=== PATIENT | female | born 1965 | race Caucasian/White ===

== ENCOUNTER 2020-04-30 10:34 | Emergency (ER) | payer BC ==
--- NOTE | 2020-04-30 11:36 | EDM.PDOC ---
ED HPI GENERAL MEDICAL PROBLEM - General Chief Complaint: Respiratory Problem Stated Complaint: HEADACHE, BODY ACHES, COUGH Time Seen by Provider: 04/30/20 11:30 Source of Information: Reports: Patient, RN, RN Notes Reviewed History Limitations: Reports: No Limitations - History of Present Illness INITIAL COMMENTS - FREE TEXT/NARRATIVE: Patient presents to the ED via personal vehicle with complaints of cough, headache, sore throat, post-nasal drip, and general malaise. She does report recent exposure to a patient positive for COVID and denies recent testing. She denies fever, shaking chills, chest pain, or shortness of breath. She does report chest tightness. She has taken one dose of Tylenol for this problem, but no additional medications. She denies any recent illness. The patient attests to a history of seasonal allergies. - Related Data Allergies Allergy/AdvReac Type Severity Reaction Status Date / Time No Known Allergies Allergy Verified 04/30/20 10:43 Home Meds: Home Meds Desvenlafaxine [Desvenlafaxine ER] 50 mg PO DAILY 04/30/20 [History] Progesterone, Micronized [Progesterone] 200 mg PO DAILY 04/30/20 [History] ED ROS GENERAL - Review of Systems Review Of Systems: Comprehensive ROS is negative, except as noted in HPI. ED EXAM, GENERAL - Physical Exam Exam: See Below Exam Limited By: No Limitations General Appearance: Alert, WD/WN, No Apparent Distress Eye Exam: Bilateral Eye: Abnormal EOM, EOMI, Normal Inspection, PERRL Ears: Normal External Exam, Normal Canal, Hearing Grossly Normal, Normal TMs Ear Exam: Bilateral Ear: TM normal (Fluid noted behind TM) Nose: Clear Rhinorrhea (Injected turbinates) Throat/Mouth: Normal Voice, No Airway Compromise Head: Atraumatic, Normocephalic Neck: Normal Inspection, Supple, Non-Tender. No: Lymphadenopathy (L), Lymphadenopathy (R), Tender Lateral, Tender Midline, Thyromegaly Respiratory/Chest: No Respiratory Distress, Lungs Clear, Normal Breath Sounds, No Accessory Muscle Use, Chest Non-Tender Cardiovascular: Normal Peripheral Pulses, Regular Rate, Rhythm, No Edema, No Gallop, No Murmur, No Rub Peripheral Pulses: 2+: Radial (L), Radial (R) Extremities: Normal Inspection, Non-Tender, No Pedal Edema, Normal Capillary Refill Neurological: Alert, Oriented, CN II-XII Intact Skin Exam: Warm, Dry, Intact, Normal Color, No Rash. No: Ecchymosis, Erythema, Petechiae, Rash Course - Vital Signs Last Recorded V/S: Last Vital Signs Temp 98.2 F 04/30/20 10:38 Pulse 91 04/30/20 10:38 Resp 16 04/30/20 10:38 BP 128/60 04/30/20 10:38 Pulse Ox 99 04/30/20 10:38 - Orders/Labs/Meds Labs: Laboratory Tests 04/30/20 Range/Units 10:51 SARS CoV-2 RNA Rapid DEANGELO Negative (NEGATIVE) - Re-Assessments/Exams Free Text/Narrative Re-Assessment/Exam: 04/30/20 11:35 COVID negative. Patient counseled on supportive cares for upper respiratory viral illness. Departure - Departure Time of Disposition: 11:38 Disposition: Home, Self-Care 01 Condition: Good Clinical Impression: Upper respiratory infection, viral - Discharge Information *PRESCRIPTION DRUG MONITORING PROGRAM REVIEWED*: Not Applicable *COPY OF PRESCRIPTION DRUG MONITORING REPORT IN PATIENT DORENE: Not Applicable Instructions: Viral Respiratory Infection, [id number] Additional Instructions: Follow up with primary care provider should symptoms persist past two weeks, or with fever, shaking chills, chest pain, persistent shortness of breath. Sepsis Event Note (ED) - Evaluation Sepsis Screening Result: No Definite Risk - Focused Exam Vital Signs: Vital Signs Temp Pulse Resp BP Pulse Ox 04/30/20 10:38 98.2 F 91 16 128/60 99
== END 2020-04-30 11:42 | disposition home or self-care (01) ==
LOC: DL.ED 10:34
DX: J06.9 Acute upper respiratory infection, unspecified (principal); Z20.828 Contact with and (suspected) exposure to other viral communicable diseases
CPT/HCPCS: 99282; 99284; U0002

== ENCOUNTER 2024-10-10 10:01 | Emergency (ER) | payer BC ==
[2024-10-10 10:26] LABS: BASOPHILS PERCENT AUTO 1.1 % (0.0-1.0); HEMATOCRIT 40.9 % (37.0-47.0); HEMOGLOBIN 13.2 g/dL (12.0-16.0); LYMPHOCYTES PERCENT AUTO 35.6 % (20.5-50.1); MEAN CORPUSCULAR HEMOGLOBIN 29.6 pg (27.0-34.0); MEAN CORPUSCULAR HGB CONC 32.3 g/dL (33.0-35.0); MEAN CORPUSCULAR VOLUME 91.7 fL (80-100); MONOCYTES PERCENT AUTO 9.6 % (2-8); NEUTROPHILS PERCENT AUTO 51.7 % (42.2-75.2); PLATELET COUNT,PLT 245 10^3/uL (150-450); RED BLOOD CELL COUNT 4.46 10^6/uL (4.2-5.4); WHITE BLOOD CELL COUNT,WBC 4.6 10^3/uL (5.0-10.0)
[2024-10-10 10:52] LABS: A/G RATIO 1.3; ALANINE AMINOTRANSFERASE,ALT 30 U/L (14-59); ALBUMIN 4.3 g/dL (3.4-5.0); ALKALINE PHOSPHATASE 80 U/L (46-116); ANION GAP 12.1 mEq/L (7-13); ASPARTATE AMNIOTRANSFERASE,AST 14 U/L (15-37); BILIRUBIN TOTAL 0.3 mg/dL (0.2-1.0); BLOOD UREA NITROGEN,BUN 12 mg/dL (7-18); BUN/CREATININE RATIO 12.9 (No establ ref range); CALCIUM 9.7 mg/dL (8.5-10.1); CARBON DIOXIDE,CO2 30 mmol/L (21-32); CHLORIDE,CL 100 mmol/L (98-107); CREATININE 0.93 mg/dL (0.55-1.02); GLUCOSE RANDOM 111 mg/dL (70-99); LIPASE 105 U/L (16-77); POTASSIUM,K 4.1 mmol/L (3.5-5.1); PROTEIN TOTAL,TP 7.5 g/dL (6.4-8.2); SODIUM,NA 138 mmol/L (136-145)
[2024-10-10 10:54] LABS: ESTIMATED GFR 70 mL/min (>=60)
== END 2024-10-10 11:32 | disposition home or self-care (01) ==
LOC: DL.ED 10:01
DX: R07.89 Other chest pain (principal); Z79.899 Other long term (current) drug therapy
CPT/HCPCS: 36415; 71046; 80053; 83690; 84484; 85025; 85610; 93010; 99284; 99285